=== PATIENT | male | born 1955 | race Caucasian/White ===

== ENCOUNTER 2023-06-26 08:34 | Outpatient (CLI) | payer OTHER | END 2023-06-26 08:35 | disposition home or self-care (01) | LOC: SCSMRI 08:34 | PROVIDERS: ATTEND Orthopaedic Surgery | DX: S46.012A Strain of muscle(s) and tendon(s) of the rotator cuff of left shoulder, initial encounter (principal); M75.112 Incomplete rotator cuff tear or rupture of left shoulder, not specified as traumatic; M19.012 Primary osteoarthritis, left shoulder; R60.0 Localized edema ==

== ENCOUNTER 2023-07-25 10:48 | Outpatient (CLI) | payer OTHER ==
[2023-07-25 11:29] LABS: #Basophils 0.1 10x3/uL (0.0-0.2); #Eosinphils 0.2 10x3/uL (0.0-0.5); #Monocytes 1.2 10x3/uL (0.0-1.1); #Neutrophils 7.9 10x3/uL (1.5-8.4); %Basophils 0.6 % (0.0-2.0); %Eosinophils 1.8 % (0.0-6.0); %Lymphocytes 19.9 % (18.0-47.0); %Monocytes 10.2 % (0.0-10.0); %Neutrophils 67.2 % (40.0-75.0); Hematocrit 46.7 % (38.8-50.0); Hemoglobin 16.1 g/dL (13.5-17.5); Mean Corpuscular HGB CONC 34.5 g/dL (32.0-36.0); Mean Corpuscular Hemoglobin 33.5 pg (27.0-33.0); Mean Corpuscular Volume 97.3 fl (81.2-95.1); Mean Platelet Volume 10.9 fl (7.4-10.4); Platelet Count 273 10x3/uL (150-450); RBC Distribution Width 12.7 % (11.5-14.5); White Blood Cell (WBC) Count 11.8 10x3/uL (3.5-10.5)
[2023-07-25 11:53] LABS: Anion Gap 14 mmol/L (10-20); BUN (Urea Nitrogen) 13 mg/dL (8.4-25.7); Calc. Creatinine Clearance 0 mL/min (70-130); Calcium 9.5 mg/dL (7.8-10.44); Carbon Dioxide 25 mmol/L (23-31); Chloride 102 mmol/L (98-107); Estimated GFR 86; Glucose 95 mg/dL (80-115); Potassium 4.4 mmol/L (3.5-5.1); Sodium 137 mmol/L (136-145)
== END 2023-07-25 10:49 | disposition home or self-care (01) ==
LOC: LABBT 10:48
PROVIDERS: ATTEND Orthopaedic Surgery
DX: Z01.818 Encounter for other preprocedural examination (principal); S46.012D Strain of muscle(s) and tendon(s) of the rotator cuff of left shoulder, subsequent encounter
CPT/HCPCS: 80048; 85025; 93005; 93010

== ENCOUNTER 2023-07-30 07:21 | Day surgery (SDC) | payer OTHER ==
[2023-07-25 11:11] VITALS: BMI 29.6
[2023-07-30] MEDS ORDERED: fentaNYL 50 mcg/mL 1 mL Vial ONE (08:08)
[2023-07-30] MEDS ORDERED: Midazolam HCl 2 mg/2 ml Vial ONE (08:08)
[2023-07-30] MEDS ORDERED: Ropivacaine 0.5% HCl/PF (150 MG/30 ML VIAL) ONE (08:09)
[2023-07-30] MEDS ORDERED: Ropivacaine 0.2% HCl/PF 20 ML ONE (08:09)
[2023-07-30] MEDS ORDERED: EPINEPHrine 1 MG/ML VIAL ONE (08:44)
[2023-07-30] MEDS ORDERED: Lidocaine 1% (PF) 30 ML VIAL ONE (08:44)
[2023-07-30] MEDS ORDERED: Ondansetron PF 4 MG/2 ML Vial ONE ×2 (09:05→09:22)
[2023-07-30] MEDS ORDERED: Ketorolac Tromethamine 30 MG/ML VIAL ONE ×2 (09:05→09:22)
[2023-07-30] MEDS ORDERED: PROPOFOL 20 ML ONE (09:05)
[2023-07-30] MEDS ORDERED: Lidocaine 2% PF 5 ML VIAL ONE (09:05)
[2023-07-30] MEDS ORDERED: fentaNYL PF 100 MCG/2 ML SYRINGE ONE ×2 (09:05→11:10)
[2023-07-30] MEDS ORDERED: Dexamethasone 20 MG/5 ML VIAL ONE ×2 (09:05→09:22)
[2023-07-30] MEDS ORDERED: Rocuronium Bromide 10 MG/ML (10ML VIAL) ONE ×2 (09:05→09:22)
[2023-07-30] MEDS ORDERED: CEFAZOLIN 2 GM VIAL ONE (09:10)
[2023-07-30] MEDS ORDERED: Sodium Chloride 0.9% 100 ML ONE (09:10)
[2023-07-30] MEDS ORDERED: PROPOFOL 200 MG/20 ML VIAL ONE (09:22)
[2023-07-30] MEDS ORDERED: Glycopyrrolate 0.2 MG/ML 5 ML SYRINGE ONE ×2 (09:22→10:37)
[2023-07-30] MEDS ORDERED: Lidocaine 1% PF 5 ML VIAL ONE (09:22)
[2023-07-30] MEDS ORDERED: NEOSTIGMINE 3 MG/3 ML SYR 3 MG/3 ML SYRINGE ONE ×2 (09:22→10:37)
[2023-07-30] MEDS ORDERED: fentaNYL 50 mcg/mL 1 mL Vial SLOW IVP PRN (09:28)
[2023-07-30] MEDS ORDERED: Promethazine HCl 25 MG/ML VIAL IM PRN (09:30)
[2023-07-30] MEDS ORDERED: HYDROcodone/Acetaminophen 10/325 mg Tablet PO PRN ×2 (09:30)
[2023-07-30] MEDS ORDERED: traMADol HCl 50 MG TAB PO PRN ×2 (09:30)
[2023-07-30] MEDS ORDERED: Zolpidem Tartrate 5 MG TAB PO PRN (09:30)
[2023-07-30] MEDS ORDERED: Ropivacaine 0.2% 550 ML 550 ML NERVE BLCK SCH (09:30)
[2023-07-30] MEDS ORDERED: Ondansetron PF 4 MG/2 ML Vial IVP PRN (09:30)
[2023-07-30] MEDS ORDERED: Ketorolac Tromethamine 30 MG/ML VIAL IVP SCH (12:00)
[2023-07-30] MEDS ORDERED: diphenhydrAMINE 50 MG/ML VIAL ONE (13:09)
== END 2023-07-30 14:07 | disposition home or self-care (01) ==
LOC: SDC 07:21
PROVIDERS: ATTEND Orthopaedic Surgery
PROC: 0RQK4ZZ Repair Left Shoulder Joint, Percutaneous Endoscopic Approach (ICD-10-PCS; principal; 2023-07-30)
PROC: 0LN24ZZ Release Left Shoulder Tendon, Percutaneous Endoscopic Approach (ICD-10-PCS; principal; 2023-07-30)
DX: S46.012A Strain of muscle(s) and tendon(s) of the rotator cuff of left shoulder, initial encounter (principal); S43.432A Superior glenoid labrum lesion of left shoulder, initial encounter; M75.22 Bicipital tendinitis, left shoulder; J45.909 Unspecified asthma, uncomplicated; X50.1XXA Overexertion from prolonged static or awkward postures, initial encounter
CPT/HCPCS: A4306; C1713; J0171; J1100; J1200; J1885; J2001; J2250; J2405; J2704; J2795; J3010; J3490